=== PATIENT | male | born 1960 | race Caucasian/White ===

== ENCOUNTER 2020-05-03 09:24 | Emergency (ER) | payer BC ==
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
--- NOTE | 2020-05-03 10:42 | RAD REPORT ---
EXAM DESCRIPTION: Shoulder Right 2 View - 05/03/2020 10:11 am CLINICAL HISTORY: PAIN COMPARISON: No comparisons TECHNIQUE: Internal and external rotation views of the right shoulder were obtained. FINDINGS: There is no fracture or dislocation. No significant AC joint finding. No acute or suspici ous findings. IMPRESSION: Negative two view right shoulder examination for acute or significant finding.
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
== END 2020-05-03 10:30 | disposition home or self-care (01) ==
LOC: ER 09:24
DX: S40.011A Contusion of right shoulder, initial encounter (principal); V18.0XXA Pedal cycle driver injured in noncollision transport accident in nontraffic accident, initial encounter; Y93.55 Activity, bike riding; Y92.9 Unspecified place or not applicable
CPT/HCPCS: 73010; 99283